=== PATIENT | female | born 1970 | race African-American/Black ===

== ENCOUNTER 2018-04-29 06:29 | Emergency (ER) | payer SELFPAY ==
[~2018-04-29] VITALS: Ht 162.6 cm; Wt 85.7 kg
[2018-04-29 06:44] VITALS: BP 156/91
[2018-04-29] MEDS ORDERED: KETOROLAC TROMETH 60MG/2ML VIAL IM ONE (07:45)
[2018-04-29] MEDS ORDERED: METHOCARBAMOL 500 MG TAB PO ONE (07:45)
== END 2018-04-29 09:14 | disposition home or self-care (01) ==
LOC: ER 06:29
DX: M62.830 Muscle spasm of back (principal)
CPT/HCPCS: 72070; 74176; 96372; 99284; J1885